=== PATIENT | female | born 1975 | race African-American/Black ===

== ENCOUNTER → 2018-01-22 | Outpatient (CLI) | payer OTHER | END | disposition home or self-care (01) | LOC: SURG 14:37 | PROVIDERS: ATTEND Anesthesiology Pain Medicine | DX: G89.4 Chronic pain syndrome (principal); M25.561 Pain in right knee; M25.562 Pain in left knee | CPT/HCPCS: 99203 ==

== ENCOUNTER → 2018-01-22 | Outpatient (CLI) | payer OTHER ==
--- NOTE | 2018-01-22 16:52 | RAD ---
Bilateral knees, 6 views, 01/22/2018: HISTORY: Knee pain On the left there is mild spurring at the knee joint and at the patellofemoral articulation. No fracture or dislocation is identified. Soft tissue fullness in the suprapatellar bursa region suggests a moderate size joint effusion. On the right there is mild spurring at the knee joint and at the patellofemoral articulation. No fracture or dislocation is identified. There is a suggestion of a small right knee joint effusion. IMPRESSION: 1. Mild degenerative change at both knees. 2. Probable bilateral joint effusions. Electronically signed by: Uche Rodriguez MD (01/22/2018 4:48 PM) [facility]
== END | disposition home or self-care (01) ==
LOC: DXRAD 15:29
PROVIDERS: ATTEND Anesthesiology Pain Medicine
DX: M17.0 Bilateral primary osteoarthritis of knee (principal)
CPT/HCPCS: 73562

== ENCOUNTER → 2019-03-10 | Outpatient (CLI) | payer BC, OTHER ==
--- NOTE | 2019-03-10 16:23 | RAD ---
Examination: Ultrasound soft tissue neck HISTORY: History of lymphadenopathy COMPARISON: None available. Findings: Ultrasound of the left neck under the left ear region demonstrates a 1 cm probable lymph node. There is a 1.1 cm lymph node identified in the submental region.Other smaller lymph nodes identified in the bilateral cervical region. IMPRESSION: Lymphadenopathy as described above the largest measuring 1.1 cm in submental region, nonspecific etiology. Electronically signed by: Jesse Green MD (03/10/2019 4:20 PM) [place] [id number]
== END | disposition home or self-care (01) ==
LOC: US 13:45
PROVIDERS: ATTEND Registered Nurse
DX: R59.1 Generalized enlarged lymph nodes (principal)
CPT/HCPCS: 76536

== ENCOUNTER → 2019-11-18 | Outpatient (CLI) | payer BC ==
[2019-11-18 13:11] LABS: BASO % 0 % (0-3); EOS # 0.2 x10^3/uL (0.0-0.7); EOS % 2 % (0-3); HEMATOCRIT 36.6 % (36.0-47.0); HEMOGLOBIN 12.3 g/dL (12.0-15.5); LYMPH # 1.6 x10^3/uL (1.0-4.8); LYMPH % 15 % (24-48); MEAN CORPUSCULAR HEMOGLOBIN 29 pg (25-35); MEAN CORPUSCULAR HGB CONC 34 g/dL (31-37); MEAN CORPUSCULAR VOLUME 87 fL (79-100); MONO # 0.7 x10^3/uL (0.0-1.1); MONO % 6 % (0-9); NEUT # 8.1 x10^3uL (1.8-7.7); NEUT % 76 % (31-73); PLATELET COUNT 302 x10^3/uL (140-400); RED BLOOD COUNT 4.23 x10^6/uL (3.50-5.40); RED CELL DISTRIBUTION WIDTH 12.6 % (11.5-14.5); WHITE BLOOD COUNT 10.7 x10^3/uL (4.0-11.0)
[2019-11-18 13:25] LABS: ALBUMIN 2.8 g/dL (3.4-5.0); ALBUMIN/GLOBULIN RATIO 0.6 (1.0-1.7); CALCIUM 8.4 mg/dL (8.5-10.1); CREATININE 0.8 mg/dL (0.6-1.0); GFR 93.4; MAGNESIUM 1.8 mg/dL (1.8-2.4); POTASSIUM 3.9 mmol/L (3.5-5.1); TOTAL BILIRUBIN 0.2 mg/dL (0.2-1.0); TOTAL PROTEIN 7.3 g/dL (6.4-8.2)
== END | disposition home or self-care (01) ==
LOC: LAB 12:00
PROVIDERS: ATTEND Family Medicine
DX: M79.661 Pain in right lower leg (principal); M79.662 Pain in left lower leg
CPT/HCPCS: 36415; 80053; 83735; 85025; 85379

== ENCOUNTER → 2019-11-19 | Outpatient (CLI) | payer BC ==
--- NOTE | 2019-11-19 11:44 | RAD ---
Right lower extremity venous duplex study 11/19/2019 11:41 AM Clinical History: Right calf pain and swelling Technique: Using a combination of real time ultrasound imaging and color-flow and pulse Doppler imaging techniques, including spectral analysis, graded compression and augmentation, duplex evaluation of the deep venous system of the right lower extremity was performed. Multiple images were obtained. Findings: There is no sonographic evidence of deep venous thrombosis involving the visualized deep venous structures of the right lower extremity Impression: No evidence of deep venous thrombosis involving the right lower extremity Electronically signed by: Chapo Mariee MD (11/19/2019 11:42 AM) [id number]
== END ==
LOC: US 10:58
PROVIDERS: ATTEND Family Medicine
DX: R79.1 Abnormal coagulation profile (principal); M79.604 Pain in right leg
CPT/HCPCS: 93971

== ENCOUNTER → 2020-02-21 | Outpatient (CLI) | payer BC ==
--- NOTE | 2020-02-21 13:14 | RAD ---
PROCEDURE: KNEE BILAT 3V STUDY DATE: 02/21/2020 CLINICAL INDICATION / HISTORY: BILATERAL KNEE PAIN . TECHNIQUE: AP, lateral, and tunnel views of the left and right knees. COMPARISON: 01/22/2018 left knee x-rays. FINDINGS: Right knee shows anatomic alignment and normal mineralization with no fracture or aggressive osseous lesions by tricompartmental degenerative changes as evidenced by joint space narrowing of the patellofemoral compartment on the lateral view with osteophytic spurring the femoral condyles and superior and inferior poles of the patella, and mild medial compartment osteophytic spurring on the medial femoral condyle and medial tibial plateau. The greatest findings of degenerative change are in the lateral compartment where more bulky osteophytic spurs on the posterior lateral aspect of the tibial plateau and on the lateral femoral condyle are evident. Left knee also shows normal mineralization and alignment with no fracture or aggressive osseous lesions but tricompartmental degenerative changes are less conspicuous than in the right knee, affecting the patellofemoral compartment and to a slightly lesser extent the lateral compartment greater than the medial compartment. The soft tissues are unremarkable. No obvious joint effusion. No radio-opaque foreign bodies are identified. IMPRESSION: Bilateral tricompartmental degenerative changes as described. Electronically signed by: Marleni Triplett MD (02/21/2020 1:11 PM) [id number]
== END ==
LOC: PMG 11:28
PROVIDERS: ATTEND Family Medicine
DX: M17.0 Bilateral primary osteoarthritis of knee (principal); Z68.30 Body mass index [BMI] 30.0-30.9, adult
CPT/HCPCS: 73562

== ENCOUNTER 2020-05-02 21:39 | Emergency (ER) | payer OTHER, BC ==
[~2020-05-02] VITALS: Ht 167.6 cm; Wt 88.0 kg
[2020-05-02 21:50] VITALS: BP 113/63
[2020-05-02] MEDS ORDERED: IBUPROFEN 600 MG TABLET. PO ONE (22:15)
--- NOTE | 2020-05-02 22:22 | PHYS DOC ---
General Adult EDM: Chief Complaint: SHOULDER INJURY HPI: HPI: The history was obtained from the patient. Patient is a 44-year-old female presents with chief complaint of left anterior shoulder pain. States 4 hours prior to arrival she was moving a heavy object. She states while pulling this object she noted a pop to the anterior aspect of her left shoulder. She states that she has noted pain in that area ever since. She does note that she can move her left upper extremity but states it is more painful. Denies numbness or tingling. Denies any trauma. Denies any direct blows to the shoulder. Denies weakness. Denies any skin or joint placement surgery. No other complaints. Review of Systems: Review of Systems: Constitutional: Denies fever or chills Eyes: Denies change in visual acuity HENT: Denies nasal congestion or sore throat Respiratory: Denies cough or shortness of breath Cardiovascular: Denies chest pain or edema GI: Denies abdominal pain, nausea, vomiting, bloody stools or diarrhea : Denies dysuria Musculoskeletal: Positive for shoulder pain Integument: Denies rash Neurologic: Denies headache, focal weakness or sensory changes Endocrine: Denies polyuria or polydipsia Lymphatic: Denies swollen glands Psychiatric: Denies depression or anxiety Heart Score: Risk Factors: Risk Factors: DM, Current or recent (<one month) smoker, HTN, HLP, family history of CAD, obesity. Risk Scores: Score 0 - 3: 2.5% MACE over next 6 weeks - Discharge Home Score 4 - 6: 20.3% MACE over next 6 weeks - Admit for Clinical Observation Score 7 - 10: 72.7% MACE over next 6 weeks - Early Invasive Strategies Current Medications: Current Meds: Current Medications Medications (Trade) Dose Ordered Sig/Jagdish Start Time Stop Time Status Last Admin Dose Admin Ibuprofen (Motrin) 600 mg 1X ONCE 05/02/20 22:15 05/02/20 22:16 UNV Physical Exam: PE: Constitutional: Well developed, well nourished, no acute distress, non-toxic appearance. [] HENT: Normocephalic, atraumatic, bilateral external ears normal, oropharynx moist, no oral exudates, nose normal. [] Eyes: PERRLA, EOMI, conjunctiva normal, no discharge. [] Neck: Normal range of motion, no tenderness, supple, no stridor. [] Cardiovascular:Heart rate regular rhythm, no murmur [] Lungs & Thorax: Bilateral breath sounds clear to auscultation [] Abdomen: Bowel sounds normal, soft, no tenderness, no masses, no pulsatile masses. [] Skin: Warm, dry, no erythema, no rash. [] Back: No tenderness, no CVA tenderness. [] Extremities: L SHOULDER: Clavicle pain is not present. Humerus pain is not present. Scapula without tenderness. Theres no obvious joint or bony deformity. ROM of the joints without ligamentous laxity. Pain is present with ROM. Radial head is non-tender. No overlying erythema. Neurologic: Alert and oriented X 3, normal motor function, normal sensory function, no focal deficits noted. [] Psychologic: Affect normal, judgement normal, mood normal. [] EKG: EKG: [] Radiology/Procedures: Radiology/Procedures: [address] [id number] IMAGING REPORT Signed PATIENT: ALISE TABOR ACCOUNT: [id number] : 1975 LOCATION: ER AGE: 44 SEX: F EXAM STATUS: REG ER ORD. PHYSICIAN: DUY SMALLS DO REASON: Left shoulder pain, injury today PROCEDURE: SHOULDER 2+V LEFT SHOULDER 2+V LEFT History: Reason: Left shoulder pain, injury today / Spl. Instructions: / History: Technique: 3 views left shoulder Comparison: None. Findings: Normal alignment of the left glenohumeral and acromioclavicular joints. No fracture. Soft tissues unremarkable. Impression: 1. No acute osseous abnormality. Electronically signed by: Betito Hayward DO (05/02/2020 11:21 PM) [facility] DICTATED AND SIGNED BY: BETITO HAYWARD DO DATE: 05/02/20 [id number] CC: AFSHIN CARDOZO MD; DUY SMALLS DO ~ [] Course & Med Decision Making: Course & Med Decision Making Pertinent Labs and Imaging studies reviewed. (See chart for details) [] Patient is a 44-year-old female presents with chief complaint of anterior left shoulder pain after moving a heavy object. Exam noted above. Plain film imaging reveals no osseous abnormality. Her symptoms are likely secondary to soft tissue injury. She was counseled on supportive care measures at home. She will be given referral to orthopedic surgeon. She was instructed to follow-up with her primary care physician in the next 2 to 3 days. Return precautions discussed and understood. Stable for discharge home. Satnam Disclaimer: Dragon Disclaimer: This electronic medical record was generated, in whole or in part, using a voice recognition dictation system. Departure Departure: Impression: Primary Impression: Left shoulder pain Qualified Codes: M25.512 - Pain in left shoulder Disposition: HOME/RESIDENCE PRIOR TO ADM Condition: STABLE Referrals: AFSHIN CARDOZO MD (PCP) DINORA CAVAZOS MD Patient Instructions: Rotator Cuff Injury Additional Instructions: Please follow-up with your primary care physician in the next 2 to 3 days. Justification of Admission: Justification of Admission: Justification of Admission Dx: N/A DUY SMALLS DO May 02, 2020 22:22
[2020-05-02] MEDS ORDERED: ACETAMINOPHEN 500 MG TABLET PO ONE (23:00)
--- NOTE | 2020-05-02 23:24 | RAD ---
SHOULDER 2+V LEFT History: Reason: Left shoulder pain, injury today / Spl. Instructions: / History: Technique: 3 views left shoulder Comparison: None. Findings: Normal alignment of the left glenohumeral and acromioclavicular joints. No fracture. Soft tissues unremarkable. Impression: 1. No acute osseous abnormality. Electronically signed by: Betito Hayward DO (05/02/2020 11:21 PM) [facility]
== END 2020-05-02 23:45 | disposition home or self-care (01) ==
LOC: ER 21:39
DX: M25.512 Pain in left shoulder (principal); X50.9XXA Other and unspecified overexertion or strenuous movements or postures, initial encounter; Y93.89 Activity, other specified; Y92.89 Other specified places as the place of occurrence of the external cause; Y99.8 Other external cause status
CPT/HCPCS: 73030; 99283

== ENCOUNTER 2020-05-17 13:00 | Emergency (ER) | payer BC, OTHER ==
[~2020-05-17] VITALS: Ht 167.6 cm; Wt 89.5 kg
[2020-05-17] MEDS ORDERED: diazePAM 5 MG TABLET. PO ONE (14:45)
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
[2020-05-17 15:19] VITALS: BP 133/74
[2020-05-17] MEDS ORDERED: METH-38 PO (15:37)
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
== END 2020-05-17 15:52 | disposition home or self-care (01) ==
LOC: ER 13:00
DX: R07.89 Other chest pain (principal); M54.5 Low back pain; G89.11 Acute pain due to trauma; M19.90 Unspecified osteoarthritis, unspecified site; Z88.6 Allergy status to analgesic agent; V43.52XA Car driver injured in collision with other type car in traffic accident, initial encounter; Y93.I9 Activity, other involving external motion; Y92.488 Other paved roadways as the place of occurrence of the external cause; Y99.8 Other external cause status
CPT/HCPCS: 71250; 99284-25

== ENCOUNTER → 2020-05-20 | Outpatient (CLI) | payer OTHER ==
[2020-05-17 15:19] VITALS: BP 133/74
[~2020-05-20] MED LIST: METH-38 PO
--- NOTE | 2020-05-21 09:56 | RAD ---
C-spine 5 views INDICATION: Trauma COMPARISON: Noncontrast chest CT of 05/17/2020 TECHNIQUE: Lateral, bilateral oblique, AP and odontoid views of the cervical spine were obtained. FINDINGS: The osseous alignment shows mild reversal of normal cervical lordosis, apex at C4-C5 with no listhesis. No fracture or aggressive osseous lesions are seen. Bilateral oblique views show no significant bony foraminal stenosis. The odontoid appears intact on the available view. No prevertebral soft tissue swelling is apparent. IMPRESSION: Mild reversal of normal cervical lordosis but no listhesis or acute traumatic findings noted on x-ray. L spine 5 views INDICATION: Trauma FINDINGS: AP, bilateral oblique and lateral views of the lumbar spine in addition to cone-down lateral view of the lumbar spine were obtained. They show 5 lumbar type vertebrae in anatomic alignment with no fracture or aggressive appearing osseous lesions. There are facet hypertrophic changes most conspicuous at L4-L5 and at L5-S1. No high-grade bony central canal or foraminal stenosis is identified. Visualized sacroiliac joints and hips are within normal limits. Soft tissues show moderate stool in the large bowel and cholecystectomy clips in the right upper quadrant IMPRESSION: Lumbar spinal mild degenerative changes but no acute traumatic findings or aggressive osseous lesions. Electronically signed by: Marleni Triplett MD (05/21/2020 9:53 AM) [facility]
== END | disposition home or self-care (01) ==
LOC: DXRAD 10:11
PROVIDERS: ATTEND Physician Assistant Medical
DX: M40.46 Postural lordosis, lumbar region (principal); M54.5 Low back pain; M54.2 Cervicalgia
CPT/HCPCS: 72050; 72110

== ENCOUNTER 2021-01-04 21:26 | Emergency (ER) | payer BC, OTHER ==
[~2021-01-04] VITALS: Ht 167.6 cm; Wt 94.6 kg
[2021-01-04 21:55] VITALS: BP 172/89
[2021-01-04] MEDS ORDERED: BACITRACIN ZINC TOPICAL OINT PACKET. TP ONE (22:30)
[2021-01-04] MEDS ORDERED: HYDR-2759 PO (22:30)
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
[2021-01-04] MEDS ORDERED: HYDROcodone/APAP 7.5/325MG 1 TAB TABLET PO ONE (23:00)
== END 2021-01-04 22:40 | disposition home or self-care (01) ==
LOC: ER 21:26
DX: T23.202A Burn of second degree of left hand, unspecified site, initial encounter (principal); Z88.6 Allergy status to analgesic agent; Z90.49 Acquired absence of other specified parts of digestive tract; X08.8XXA Exposure to other specified smoke, fire and flames, initial encounter; Y93.89 Activity, other specified; Y92.89 Other specified places as the place of occurrence of the external cause; Y99.8 Other external cause status
CPT/HCPCS: 16020; 99283-25